=== PATIENT | female | born 1985 | race African-American/Black ===

== ENCOUNTER 2019-09-29 19:02 | Emergency (ER) | payer MEDICAID ==
[2019-09-29] MEDS ORDERED: IBUPROFEN 600 MG TABLET PO ONE (19:20)
[2019-09-29] MEDS ORDERED: ACETAMINOPHEN 325 MG TABLET PO ONE (19:20)
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
[2019-09-29 19:25] VITALS: BP 140/90
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
== END 2019-09-29 20:35 | disposition home or self-care (01) ==
LOC: ER 19:02
DX: M25.561 Pain in right knee (principal); F17.200 Nicotine dependence, unspecified, uncomplicated
CPT/HCPCS: 99283; 73564; L1830; J3490 ×2